=== PATIENT | female | born 1955 | race Caucasian/White ===

== ENCOUNTER → 2021-10-16 16:49 | Outpatient (CLI) | payer MEDICARE, OTHER, SELFPAY ==
[2021-10-16 18:45] LABS: Free T3, Triiodothyronine Free 3.14 pg/mL (2.77-5.27)
[2021-10-16 18:59] LABS: Thyroid Stimulating Hormone 1.65 uIU/mL (0.47-4.68)
== END ==
DX: Z85.850 Personal history of malignant neoplasm of thyroid (principal)
CPT/HCPCS: 36415; 84439; 84443; 84481